=== PATIENT | female | born 1955 | race Caucasian/White ===

== ENCOUNTER → 2017-12-14 | Outpatient (CLI) | payer OTHER ==
[~2017-12-14] MED LIST: SINCALIDE 3 MCG/VIAL INJ ONE
--- NOTE | 2017-12-14 15:08 | Diagnostic Imaging Report ---
PROCEDURE:ABDOMINAL ULTRASOUND COMPARISON:None. INDICATIONS:RUQ PAIN TECHNIQUE: Guerrero-scale and color sonographic images were obtained of the abdomen in transverse and sagittal planes. FINDINGS: Exam limited by patient's body habitus and overlying bowel gas. Liver: 14.0 cm in length in right midclavicular line. Increased echogenicity. No masses. Main portal vein: 0.8 cm, hepatopetal flow Gallbladder: Hydropic gallbladder, measuring 12.4 x 6.2 x 6.4 cm. Multiple echogenic foci in the gallbladder wall, predominantly at the fundus, which show ring down/comet tail artifact. No stones or sludge. The gallbladder wall measures 0.3 cm, upper limit of normal Common Bile Duct: 0.5 cm. Sonographic Obregon's sign: Positive Right kidney: 11.9 cm. Left kidney: 12.7 cm. Normal cortical echogenicity. No hydronephrosis, stones, or focal cystic or solid lesions. Spleen: 10.6 cm. No focal lesions. Pancreas: The visualized portions are unremarkable. Inferior vena cava: Patent Aorta: Within normal limits Ascites: None CONCLUSION: 1. Hydropic gallbladder. 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 No definite wall thickening, pericholecystic fluid, stones, or sludge are identified to suggest cholecystitis, and a positive sonographic Obregon sign may be due to marked distention. 2. Diffuse hepatic steatosis. No focal lesions. Addison Huynh M.D. Dictated by: Addison Huynh M.D. on 12/14/2017 at 15:05 Electronically approved by: Addison Huynh M.D. on 12/14/2017 at 15:05
--- NOTE | 2017-12-14 20:42 | Diagnostic Imaging Report ---
EXAM: HIDA Scan INDICATION: 62 F with post-prandial RUQ abdominal pain x 3 weeks Report: the administration of 6 mCi of Tc-99m mebrofenin, dynamic images of the abdomen in the anterior projection were obtained through 60 minutes. Additional static images were obtained at 2, 2.5 and 3 hours. Perfusion of the liver is normal. Extraction of tracer from the blood pool by the liver parenchyma is normal. Tracer appears promptly with in the biliary tract. Tracer is seen in the small bowel by 22 minutes post injection of the radiotracer. The gallbladder does not fill during the initial 60-minute dynamic sequence and does not fill through 3 hours. Impression: 1. Absence of filling of the gallbladder through 3 hours post administration of the radiotracer supports the clinical diagnosis of chronic and/or acute cholecystitis. Signed by: Dr. Gabriella Castellon M.D. on 12/14/2017 8:38 PM
== END ==
LOC: US 12:10
PROVIDERS: ATTEND Internal Medicine Gastroenterology
DX: R10.11 Right upper quadrant pain (principal)
CPT/HCPCS: 76700; 78227; A9537; J2805